=== PATIENT | male | born 1990 | race Caucasian/White ===

== ENCOUNTER 2021-09-06 07:49 | Day surgery (SDC) | payer OTHER ==
[2021-09-05 12:14] LABS: Absolute Lymphocytes (CBC) 2.5 K/uL (0.7-4.9); Basophils % 0.5 % (0-1.3); Hematocrit 46.3 % (39.6-49.0); Lymphocytes % 24.6 % (15.3-44.8); MPV 8.8 fL (7.6-11.3); RBC Red Blood Cell Count 5.26 M/uL (4.33-5.43)
[2021-09-05 12:26] LABS: BUN Blood Urea Nitrogen 11 mg/dL (7-18); Bicarbonate 27 mmol/L (21-32); Glucose Level 110 mg/dL (74-106); Potassium 4.1 mmol/L (3.5-5.1); Sodium Level 140 mmol/L (136-145)
[2021-09-06] MEDS ORDERED: dexAMETHasone 10 MG/ML VIAL ONE (08:09)
[2021-09-06] MEDS ORDERED: MIDAZOLAM HCL 2 MG/2 ML INJ ONE (08:09)
[2021-09-06] MEDS ORDERED: ROCURONIUM 50 MG/5 ML VIAL IV ONE (08:09)
[2021-09-06] MEDS ORDERED: FENTANYL CITR 100 MCG/2 ML ONE ×2 (08:09→10:13)
[2021-09-06] MEDS ORDERED: propofoL 200 MG/20 ML VIAL IV ONE (08:09)
[2021-09-06] MEDS ORDERED: LIDOCAINE 2% MPF 5 ML VIAL ONE (08:09)
[2021-09-06] MEDS ORDERED: Ringers Lactate 1,000 ML IV ONE (08:19)
[2021-09-06] MEDS ORDERED: BUPIVACAINE 0.5% PF 10 ML VIAL ONE (09:06)
[2021-09-06] MEDS: CEFAZOLIN/NS 1gm 1 GM/50 ML BAG ONE ×2 (09:23→09:40)
[2021-09-06] MEDS ORDERED: ONDANSETRON 4 MG/2 ML VIAL ONE ×2 (09:24→13:01)
[2021-09-06] MEDS ORDERED: Phenylephrine HCl 10 MG/ML 1 ML VIAL ONE (09:47)
[2021-09-06] MEDS ORDERED: NEOSTIGMINE 1 MG/ML -5 ML ONE (10:18)
[2021-09-06] MEDS ORDERED: GLYCOPYRROLATE 0.2 MG/ML SYR ONE (10:18)
[2021-09-06] MEDS ORDERED: KETOROLAC 30 MG/ML INJ ONE (10:18)
[2021-09-06] MEDS: MORPHINE 4 MG/ML SYR ONE ×2 (11:16→11:22)
--- NOTE | 2021-09-06 11:33 | OP ---
Date of Procedure: 09/06/2021 Surgeon: Chase Bar MD Warp Knitter: Chadd Nails, certified physician's assistant. Preoperative Diagnosis: Supraumbilical hernia. Postoperative Diagnosis: Supraumbilical hernia. Procedure: Laparoscopic repair of supraumbilical hernia. Estimated Blood Loss: Minimal. Specimen: Hernia sac. Findings: As above. Anesthesia: General. Complications: None. Disposition: The patient tolerated the procedure in stable condition and taken to Recovery in good g eneral condition. Procedure In Detail: The patient was brought to the OR and placed in supine position. General anest hesia begun. The patient was prepped and draped in usual sterile fashion. Marcaine 0.5% was infiltr ated locally and then 15-blade was used to make a 2 cm incision in the left upper quadrant. Subcutan eous tissue divided. Fascia identified and divided. A #1 Vicryl stay suture was placed. Peritoneal cavity entered with sharp and blunt dissection. A 12 mm trocar was placed into the peritoneal cavit y under direct vision. Pneumoperitoneum was established. Then, 5 mm trocar placed in the left lower quadrant. Laparoscopy revealed incarcerated omentum into the small hernia supraumbilically. The pa tient had a previous repair infraumbilical and that appeared to be intact, but there was attenuated p eritoneal surface there off. Subsequently, the omentum was reduced into the peritoneal cavity. It w as healthy and then a 3 cm incision was made supraumbilically and subcutaneous tissue divided. Herni a sac identified, excised, approximately a 2 cm defect remained where the hernia was and this was tamy sed with #1 PDS [id number] sutures. Then pneumoperitoneum reestablished and circular 4.5 inch B john mesh placed and secured in the standard fashion. Balloon system deployed and removed after tacki ng with AbsorbaTack. Subsequently, complete coverage of the hernia defect was at least 3 cm border w as done on all sides and there was no evidence of bowel injury or bleeding noted. All trocars were r emoved under direct vision. Stay sutures were tied to each other to approximate the fascial defect. Subcutaneous wounds were irrigated. Bleeding controlled with cautery. A 3-0 chromic used to approx imate the subcutaneous tissue and close the skin. Sterile dressing applied. The patient was awakene d and taken to Recovery in good general condition. Discharge Note: The patient will go to Day Surgery and home when stable. Disposition: Home. Condition: Stable. Discharge Instructions: Resume home medications and diet. Activity as tolerated. No heavy lifting. Remove outer dressing in 2 days, shower, keep wound clean and dry, keep Steri-Strips on at all time s. Abdominal binder as ordered. Incentive spirometry as ordered. Follow up in my office in 1 week. Call for appointment. Tylenol No. 3 1 tablet p.o. q.4 p.r.n. pain. /MODL Voice ID: [id number] Report ID: [id number]
[2021-09-06] MEDS ORDERED: HYDROCODONE/APAP 7.5/325 MG TAB ONE (12:18)
[2021-09-06] MEDS ORDERED: CODEINE 30MG/APAP 300MG TAB ONE (12:20)
[2021-09-06 13:37] VITALS: BP 115/71; TEMP 97.2; O2SAT 93
== END 2021-09-06 13:30 | disposition home or self-care (01) ==
LOC: OR 07:49
PROVIDERS: ATTEND Surgery
PROC: 0WQF4ZZ Repair Abdominal Wall, Percutaneous Endoscopic Approach (ICD-10-PCS; principal; 2021-09-06 08:45)
DX: K42.9 Umbilical hernia without obstruction or gangrene (principal); Z20.822 Contact with and (suspected) exposure to COVID-19
CPT/HCPCS: 85025; 80048; 36415; 88302; 49652; U0003; J2704; J2370; J2250; J3010 ×2; J1100; J2710; J0690; J7120; J2405 ×2; C1781